=== PATIENT | female | born 1945 | race Caucasian/White ===

== ENCOUNTER 2019-09-09 22:47 | Emergency (ER) | payer OTHER ==
[~2019-09-09] VITALS: Ht 152.4 cm; Wt 77.1 kg
[2019-09-09 22:50] VITALS: BP 133/79
--- NOTE | 2019-09-09 22:55 | NUR ---
PT AMBULATED TO BED 11.
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
[2019-09-09] MEDS ORDERED: KETOROLAC 60 MG/2 ML VIAL IM ONE (23:10)
[2019-09-09 23:57] VITALS: BP 133/79
--- NOTE | 2019-09-09 23:58 | NUR ---
Patient discharged with v/s stable. Written and verbal after care instructions given and explained. Patient alert, oriented and verbalized understanding of instructions. Ambulatory with steady gait. All questions addressed prior to discharge. ID band removed. Patient advised to follow up with PMD. Rx of MOTRIN, ZOFRAN AND NORCO given. Patient educated on indication of medication including possible reaction and side effects. Opportunity to ask questions provided and answered.
== END 2019-09-09 23:57 | disposition home or self-care (01) ==
LOC: MED 22:47
DX: S13.9XXA Sprain of joints and ligaments of unspecified parts of neck, initial encounter (principal); Z88.5 Allergy status to narcotic agent; Z90.89 Acquired absence of other organs; Z90.49 Acquired absence of other specified parts of digestive tract; V49.59XA Passenger injured in collision with other motor vehicles in traffic accident, initial encounter; Y93.89 Activity, other specified; Y92.488 Other paved roadways as the place of occurrence of the external cause; Y99.8 Other external cause status
CPT/HCPCS: 96372; 99283; J1885